=== PATIENT | male | born 2000 | race Caucasian/White ===

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

== ENCOUNTER 2024-03-30 09:35 | Emergency (ER) | payer BC, SELFPAY ==
--- NOTE | ~2024-03-30 | XR_ITS ---
XR chest 2V Ordering provider: Sapphire Llamas III, DO History: 23 years Male with . cough . Comparison: None. FINDINGS: MEDIASTINUM: The cardiac silhouette is not enlarged. LUNGS: No infiltrates, effusions or pneumothorax. OTHER: No free air under the diaphragm. IMPRESSION: No acute cardiopulmonary pathology. Reviewed, dictated and finalized at location A. ENTER WINE
[2024-03-30 09:45] VITALS: BP 118/69; PULSE 94; RESP 16; TEMP 36.7; O2SAT 100
[2024-03-30 10:24] LABS: Strep Group A RT-PCR NOT DETECTED (Negative)
[2024-03-30 10:35] LABS: Influenza A QL RT-PCR Negative (Negative); Influenza B QL RT-PCR Negative (Negative); RSV RNA, RT-PCR Negative (Negative); SARS-CoV-2 RNA PCR Negative (Negative)
[2024-03-30 11:12] VITALS: O2SAT 97
[2024-03-30] MEDS: KETOROLAC 30 MG/ML VIAL (*BKC) IM (11:12)
--- NOTE | 2024-03-30 11:38 | ED.URI ---
HPI - URI/Sore Throat General Chief Complaint: Upper Respiratory Infection Stated Complaint: sore throat, shortness of breath Time Seen by Provider: 03/30/24 10:22 History of Present Illness HPI Narrative: Pt presents with sore throat, body aches, and cough for a couple of days. Pt has at home so wanted to get checked out. Pt denies nausea or vomiting or fever. Pt denies abdominal pain or urinary symptoms. Related Data Allergies Allergy/AdvReac Type Severity Reaction Status Date / Time sertraline (From Zoloft) Allergy Swelling Verified 03/30/24 09:36 Review of Systems Review of Systems: All systems reviewed & are unremarkable except as noted in HPI and below PMFSH Past Medical History Medical History (Updated 03/30/24 @ 11:59 by Sapphire Llamas III, DO) Anxiety Polysubstance abuse Surgical History Surgical History (Updated 03/05/20 @ 16:56 by Ashley Lynn MD) No significant past surgical history Social History Social History (Updated 03/05/20 @ 16:55 by Ashley Lynn MD) Alcohol intake: current Alcohol use details: rarely Substance use type: marijuana, hallucinogens and prescription drug Gender identity (if verbalized by the patient): Male Exam Const: General: healthy appearing and no acute distress Nutritional Appearance: well nourished Orientation/consciousness: patient oriented x3 Limitations: no limitations HENMT: Head: normal to inspection Face/Nose/Sinus: Normal external nose present Face and sinus: normal facial exam Mouth: Yes Normal oral and palatal mucosa present Throat: posterior oropharynx normal Eyes: EOM: EOMs intact bilaterally Neck: Neck: normal visual inspection and no lymphadenopathy Chest: Chest palpation & inspection: normal inspection of the chest and abnormal inspection of the chest Resp: Effort & Inspection: normal respiratory effort Auscultation: clear to auscultation bilaterally Cardio: Rate: regular rate Rhythm: regular rhythm GI: GI Palp: Yes Soft to palpation and No Tenderness to palpation present (GI) Auscultation: normal bowel sounds Skin: General skin exam: normal color Rashes: no rashes Wounds: no wounds Neuro: General: patient oriented x3, moves all extremities, no meningeal signs and CN's II-XI intact bilaterally Cranial nerves: Yes Nystagmus not present Speech: normal speech Extrem: General: normal to inspection and no clubbing, cyanosis or edema Psych: Mental Status: mental status grossly normal Affect: normal affect Attitude: cooperative Course Vital Signs Vital signs: Vital Signs Temperature 98.1 F 03/30/24 09:45 Pulse Rate 94 03/30/24 09:45 Respiratory Rate 16 03/30/24 09:45 Blood Pressure 118/69 03/30/24 09:45 Pulse Oximetry 100 03/30/24 09:45 Oxygen Delivery Room Air 03/30/24 09:45 Temperature 98.1 F 03/30/24 09:45 Pulse Rate 94 03/30/24 09:45 Respiratory Rate 16 03/30/24 09:45 Blood Pressure 118/69 03/30/24 09:45 Pulse Oximetry 97 03/30/24 11:12 Oxygen Delivery Room Air 03/30/24 11:12 MDM - URI/Sore Throat MDM Narrative Medical decision making narrative: Pt presents with st cough and body aches. will check cxr swabs and rapid strep. all tests neg. likely viral uri. Lab Data Labs: Lab Results 03/30/24 03/30/24 Range/Units 09:53 09:54 Influenza A (RT-PCR) Negative (Negative) Influenza B (RT-PCR) Negative (Negative) RSV (RT-PCR) Negative (Negative) SARS-CoV-2 RNA (RT-PCR) Negative (Negative) Group A Strep (PCR) Not detected (Negative) Discharge Plan Discharge Clinical Impression: Viral infection Patient Disposition: Home, Self-Care Condition: Stable Instructions: Antibiotic Form, Viral Syndrome (ED) Patient Language: Bulgarian Prescriptions: New naproxen [Naprosyn] 500 mg tablet 500 mg PO BID Qty: 20 0RF No Action ondansetron 4 mg tablet,disintegrating 4 mg PO Q6H PRN (Reason: nausea and vomiting) Qty: 10 0RF Follow-up/Referrals: UNKNOWN,DOCTOR [Primary Care Provider] -
--- OUTSIDE RECORDS SUMMARY | 2024-04-06 08:34 | XMS_ITS | Referral Summary ---
Author Organization [facility] Address [facility] [place] [address] Care Team Providers Care General Handling Supervisor Name Role Phone Unavailable Primary Care Provider Unavailabl e Source Comments [facility],non-[facility] Affiliates and Associated Physician Practices is amultiple site organization consisting of ambulatory clinics and hospital sitesin [place], [place], [place] and [place]. This disclosure is being madepursuant to the Care Everywhere program and may not contain all information available regarding this patient. Last updated 18.[facility] Social History Tobacco Use Types Packs/Day Years Used Date Smoking Tobacco: Never Assessed Sex and Gender Information Value Date Recorded Sex Assigned at Not on file Gender Identity Not on file Sexual Orientation Not on file Plan of Treatment Not on file
--- OUTSIDE RECORDS SUMMARY | 2024-04-06 08:34 | XMS_ITS | Patient Health Summary ---
Author Organization [facility] Address [address] [place] [address] Care Team Providers Care [employer] Paralegal Name Role Phone Unavailable Primary Care Provider Unavailabl e Note from [facility] [place],non-owned Affiliates and Associated Physician Practices is amultiple site organization consisting of ambulatory clinics and hospital sitesin [place], [place], [place] and [place]. This disclosure is being madepursuant to the Care Everywhere program and may not contain all information available regarding this patient. Last updated 18.[facility] Social History Tobacco Use Types Packs/Day Years Used Date Smoking Tobacco: Never Assessed Sex and Gender Information Value Date Recorded Sex Assigned at Not on file Gender Identity Not on file Sexual Orientation Not on file Procedures * GROSS + MICRO EXAM(Performed 2002) Results * GROSS + MICRO EXAM (2002 2:00 PM CDT) Result CASE NUMBER [id number] [facility] PATH REPORT Comment: ORDERING PHYSICIAN ??MARIAA MALDONADO SPECIMEN TYPE ?Placenta,3rdTrimstr CLINICAL HISTORY ? GROSS DESCRIPTION ? CLINICAL DATA ??02 INFANT Gestational Age ??36 weeks Weight ??3239 grams RDS ?? Facies ?? Congenital Anomalies ?? MOTHER Age ??18 years ? Grav ??1 ?Para ??1 ?Ab ?? Hypertension ?Bleeding ?? Oligohydramnios ? Infection ?? Polyhydramnios ?Previous Stillbirths ?? Labor/Duration ??1.5 hours ? Diabetes ?? Additional Comments ?? cc ??[facility] ?[place], [place] GROSS DESCRIPTION ?? The specimen labeled with Laxmi Reeder, Malcolm Reeder, and placenta is received fixed in formalin for gross and microscopic examination and consists of a placenta with attached segment of umbilical cord, membranes, and detached segment of umbilical cord. ??The placenta measures 22.0 x 18.5 cm. ??The placental thickness measures 1.5 cm. ??The umbilical cord segments have an aggregate measurement of 35.0 cm in length x 1.5 cm in diameter. ??There are no knots of the umbilical cord, and the surface is yellow-white and glistening. ??The umbilical cord attachment is central. ??There are three umbilical cord vessels. ??The membranes are torn. ??The shortest length is at the margin, and the longest length is 25.0 cm. ??The membrane appearance is blanchard-lloyd and translucent, and the attachments are marginal. ??The surface has few fibrin plaques. ??The maternal surface has areas of calcification. ?? Section surfaces are grossly unremarkable. ??The placental weight after trimming is approximately 546 grams. ??Corrections Counselor sections from the placenta are submitted in cassettes A1 and A2 . ??Corrections Counselor sections from the umbilical cord and membranes are submitted in cassette A3 . ??(CT/dcr) MICROSCOPIC DESCRIPTION ? 3 H/E. Sections of the placenta show a mature placenta. ??Foci of hydropic villi are seen. ??The amniotic layer is reactive. ??No inflammation is seen. ??The umbilical cord has three vessels. ??No inflammation is seen. ?? (MM/dcr) DIAGNOSIS ? DIAGNOSIS ??THIRD TRIMESTER PLACENTA AND 3 VESSEL UMBILICAL CORD ? - FETOPLACENTAL RATIO 5.93 (NORMAL FETOPLACENTAL RATIO ? 6.3-6.7). ? - FOCAL HYDROPIC VILLI. ? - REACTIVE AMNION. ? This case has been personally reviewed and interpreted by the attending (teaching) pathologist. Television Service Engineer ? ESPERANZA ROSS RESIDENT IN PATHOLOG Sayda Nicolas M.D. PATHOLOGIST ?Mee Garcia M.D. ELECTRONICALLY BRUCEMEE ALLISON MISCELLANEOUS SAMPLES / Unknown 2002 2:00 PM CDT 2002 8:23 AM CDT Historical Provider LAB - PATHOLOGY/C YTOLOGY ORDERABLES [facility] PATH REPORT
--- OUTSIDE RECORDS SUMMARY | 2024-04-06 08:34 | XMS_ITS | Encounter Summary ---
Author Organization [facility] Address [address] [facility] [place] [address] Care Team Providers Care Instrumentation Chemist Name Role Phone Unavailable Primary Care Provider Unavailabl e Encounter Details Date Type Department Care Team (Late st Contact Info) Description 03/07/2020 7:45 AM MEAT STOCKER - 03/07/2020 2:19 PM MEAT STOCKER Hospital Encounter [facility] at [address] [address] Sanjeev Benjamin MD [address] [place] [id number] Social History Tobacco Use Types Packs/Day Years Used Date Smoking Tobacco: Never Assessed Sex and Gender Information Value Date Recorded Sex Assigned at Not on file Gender Identity Not on file Sexual Orientation Not on file COVID-19 Exposure Response Date Recorded In the last month, have you been in contact with someone who was confirmed or suspected to have Coronavirus / COVID-19? Unable to assess 03/07/2020 7:44 AM MEAT STOCKER documented as of this encounter Plan of Treatment Not on file documented as of this encounter Visit Diagnoses Diagnosis Convulsions, unspecified convulsion type (HCC) documented in this encounter
--- OUTSIDE RECORDS SUMMARY | 2024-04-06 08:34 | XMS_ITS | Clinical Summary ---
Author Organization [facility] Address [address] [place] [address] Care Team Providers Care Pattern Keeper Name Role Phone Unavailable Primary Care Provider Unavailabl e Source Comments [facility] Affiliates and Associated Physician Practices is amultiple site organization consisting of ambulatory clinics and hospital sitesin [place], [place], [place] and [place]. This disclosure is being madepursuant to the Care Everywhere program and may not contain all information available regarding this patient. Last updated 18.[facility] [employer] Social History Tobacco Use Types Packs/Day Years Used Date Smoking Tobacco: Never Assessed Sex and Gender Information Value Date Recorded Sex Assigned at Not on file Gender Identity Not on file Sexual Orientation Not on file Plan of Treatment Health Maintenance Due Date Last Done Comments HIV SCREENING 2017 HPV VACCINE (1 - Male 3-dose series) 2017 HEPATITIS C SCREENING 10/11/2020 DTAP/TDAP/TD VACCINES (1 - Tdap) 2021 HEPATITIS B VACCINE (1 of 3 - 19+ 3-dose series) 2021 DEPRESSION SCREENING 04/15/2023 COVID-19 VACCINE (1 - 2023-2 5 season) 2023 INFLUENZA VACCINE (#1) 2023 01/19/2015 ZOSTER VACCINE (1 of 2) 2052 HIB VACCINE Aged Out No longer eligi ble based on patient's age to complete this topic MENINGOCOCCAL VACCINE Aged Out No jhony nasima eligible based on patient's age to complete this topic PNEUMOCOCCAL VACCINE Aged Out No long er eligible based on patient's age to complete this topic
--- OUTSIDE RECORDS SUMMARY | 2024-04-06 08:34 | XMS_ITS | Encounter Summary ---
Author Organization [facility] Address [address] [place] [address] Care Team Providers Care Arrt Technologist Name Role Phone Unavailable Primary Care Provider Unavailabl e Encounter Details Date Type Department Care Team (Late st Contact Info) Description 2002 Orders Only [facility] - Laboratory [address] [place] [phone] ProviderBenigno MD Social History Tobacco Use Types Packs/Day Years Used Date Smoking Tobacco: Never Assessed Sex and Gender Information Value Date Recorded Sex Assigned at Not on file Gender Identity Not on file Sexual Orientation Not on file documented as of this encounter Plan of Treatment Not on file documented as of this encounter Procedures Procedure Name Priority Date/Time Associated Diagnosis Comments GROSS + MICRO EXAM CYN 2002 2: 00 PM CDT documented in this encounter Results * GROSS + MICRO EXAM (2002 2:00 PM CDT) Result CASE NUMBER [id number] [facility] PATH REPORT Comment: ORDERING PHYSICIAN ??MARIAA MALDONADO SPECIMEN TYPE ?Placenta,3rdTrimstr CLINICAL HISTORY ? GROSS DESCRIPTION ? CLINICAL DATA ??02 Gestational Age ??36 weeks Weight ??3239 grams RDS ?? Facies ?? Congenital Anomalies ?? MOTHER Age ??18 years ? Grav ??1 ?Para ??1 ?Ab ?? Hypertension ?Bleeding ?? Oligohydramnios ? Infection ?? Polyhydramnios ?Previous Stillbirths ?? Labor/Duration ??1.5 hours ? Diabetes ?? Additional Comments ?? cc ??[facility] ?[place], [place] GROSS DESCRIPTION ?? The specimen labeled [...] weight after trimming is approximately 546 grams. ??Brakeshoe Repairer sections from the placenta are submitted in cassettes A1 and A2 . ??Brakeshoe Repairer sections from the umbilical cord and membranes [...] and interpreted by the attending (teaching) pathologist. Pedicurist ? ESPERANZA ROSS RESIDENT IN PATHOLOG Sayda Nicolas M.D. PATHOLOGIST ?Mee Garcia M.D. ELECTRONICALLY MEE RICHARD MISCELLANEOUS SAMPLES / Unknown 2002 2:00 PM CDT 2002 8:23 AM CDT Historical Provider LAB - PATHOLOGY/C YTOLOGY ORDERABLES [facility] PATH REPORT documented in this encounter Visit Diagnoses Not on filedocumented in this encounter
--- OUTSIDE RECORDS SUMMARY | 2024-04-06 08:34 | XMS_ITS | Encounter Summary ---
Author Organization [facility] Address [address] [place] [address] [place] [address] Care Team Providers Care Sales Marketing Manager Name Role Phone Unavailable Primary Care Provider Unavailabl e Encounter Details Date Type Department Care Team (Latest Contact Info) Description 03/07/2020 Travel Social History Tobacco Use Types Packs/Day Years [...] COVID-19? 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
--- OUTSIDE RECORDS SUMMARY | 2024-04-06 08:35 | XMS_ITS | Encounter Summary ---
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
--- OUTSIDE RECORDS SUMMARY | 2024-04-06 08:35 | XMS_ITS | Encounter Summary ---
Author Organization [facility] Address [address] [place] [address] Phone Care Team Providers Care Department Editor Name Role Phone Provider, None Primary Care Provider Unavailabl e Reason for Visit * Reason Comments Laceration Encounter Details Date Type Department Care Team ([facility] st Contact Info) Description 03/12/2023 4:22 PM ENGINEERING INTERN - 03/12/2023 6:40 PM ENGINEERING INTERN Emergency [facility] Emergency [address] [place] [address] Deven Soto, PAC [address] [place] [address] Laceration of left thumb Discharge Disposition: Discharged to home or Selfcare Social History Tobacco Use Types Packs/Day Years Used Date Smoking Tobacco: Unknown Tobacco Cessation:Counseling Given: Not Answered Sex and Gender Information Value Date Recorded Sex Assigned at Not on file Legal Sex Male 3:45 PM ENGINEERING INTERN Gender Identity Not on file Sexual Orientation Not on file documented as of this encounter Last Filed Vital Signs Vital Sign Reading Time Taken Comments Blood Pressure 118/67 03/12/2023 6:30 PM ENGINEERING INTERN Pulse 80 03/12/2023 6:30 PM ENGINEERING INTERN Temperature 36.7 ??C (98 ??F) 03/12/2023 4:21 PM ENGINEERING INTERN Respiratory Rate 16 03/12/2023 6:30 PM ENGINEERING INTERN Oxygen Saturation 99% 03/12/2023 6:30 PM ENGINEERING INTERN Inhaled Oxygen Concentration - - Weight 68 kg (150 lb) 03/12/2023 4:21 PM ENGINEERING INTERN Height 182.9 cm (6') 03/12/2023 4:21 PM ENGINEERING INTERN Body Mass Index 20.34 03/12/2023 4:21 PM ENGINEERING INTERN documented in this encounter Discharge Instructions * Attachments The following attachments cannot be sent through Care Everywhere. * Laceration Care Adult [id number] (Bahamian) documented in this encounter ED Notes * Sandra Hansen RN - 03/12/2023 6:38 PM CST Patient discharged. Discharge instructions and patient educational material reviewed with patient; questions and concerns addressed; patient verbalizes understanding, using teach back. Patient was given 0 prescriptions. Patient discharged per ambulatory mode with self as responsible alliance party. NEERING INTERN * Sandra Hansen RN - 03/12/2023 6:16 PM CST Pt medicated per provider orders. Pt educated on intended effects and side effects of medication and verbalized understanding, able to provide teach back of education. NEERING INTERN * Deven Soto PAC - 03/12/2023 5:58 PM CSTAssociated Order(s): Laceration Repair Images from the original note were not included. Chief Complaint Patient presents with ??? Laceration Darrell Reeder is a 22 y.o. male who presents to the ED c/o laceration to tip of left thumb while cutting up meat today. Bleeding controlled. Last Td is 2015 and requesting update today. No other areas of injury. History reviewed. No pertinent past medical history. Current Facility-Administered Medications Medication Dose Route Frequency Provider Last Rate Last Admin ??? kxngrnp-motjtiuvgm-upeqbviuy pertussis (BOOSTRIX) injection SUSP 0.5 mL 0.5 mL Intramuscular Once Deven Soto PAC No current outpatient medications on file. Allergies Allergen Reactions ??? Zoloft [Sertraline] Swelling History reviewed. No pertinent past medical history. No past surgical history on file. Social History Socioeconomic History ??? Marital status: Single Spouse name: Not on file ??? Number of children: Not on file ??? Years of education: Not on file ??? Highest education level: Not on file Occupational History ??? Not on file Tobacco Use ??? Smoking status: Unknown ??? Smokeless tobacco: Not on file Substance and Sexual Activity ??? Alcohol use: Not on file ??? Drug use: Not on file ??? Sexual activity: Not on file Other Topics Concern ??? Not on file Social History Narrative ??? Not on file BP 113/63 Pulse 91 Temp 98 ??F (36.7 ??C) (Tympanic) Resp 18 Ht 6' (1.829 m) Wt 150 lb (68 kg) SpO2 98% BMI 20.34 kg/m?? Review of Systems Skin: Positive for wound (left thumb). All other systems reviewed and are negative. Physical Exam Vitals and nursing note reviewed. Constitutional: General: He is not in acute distress. Appearance: He is well-developed. He is not diaphoretic. HENT: Head: Normocephalic and atraumatic. Cardiovascular: Rate and Rhythm: Normal rate and regular rhythm. Heart sounds: Normal heart sounds. No murmur heard. Pulmonary: Effort: Pulmonary effort is normal. No respiratory distress. Breath sounds: Normal breath sounds. No wheezing, rhonchi or rales. Abdominal: General: Bowel sounds are normal. There is no distension. Palpations: Abdomen is soft. Tenderness: There is no abdominal tenderness. Musculoskeletal: Hands: Cervical back: Normal range of motion and neck supple. Skin: General: Skin is warm and dry. Coloration: Skin is not pale. Findings: No erythema or rash. Neurological: Mental Status: He is alert and oriented to person, place, and time. Psychiatric: Behavior: Behavior normal. No orders to display Laceration Repair Performed by: Deven Soto PAC Authorized by: Deven Soto PAC Consent: Verbal consent obtained. Risks and benefits: risks, benefits and alternatives were discussed Consent given by: patient Patient understanding: patient states understanding of the procedure being performed Patient consent: the patient's understanding of the procedure matches consent given Procedure consent: procedure consent matches procedure scheduled Relevant documents: relevant documents present and verified Test results: test results available and properly labeled Site marked: the operative site was marked Patient identity confirmed: verbally with patient and arm band Body area: upper extremity Location details: left thumb Laceration length: 0.5 cm Foreign bodies: no foreign bodies Tendon involvement: none Nerve involvement: none Vascular damage: no Irrigation solution: saline Irrigation method: syringe Amount of cleaning: standard Debridement: none Degree of undermining: none Skin closure: glue Approximation difficulty: simple Dressinx4 sterile gauze No results found for this or any previous visit (from the past 24 hour(s)). Imaging Results None Medical Decision Making Laceration of left thumb: acute illness or injury Clinical Impression 1. Laceration of left thumb Disposition: Discharge The patient remained stable throughout their ED stay. My clinical impression was discussed with thepatient/family. Labs and radiology results were reviewed with them. I gave them the opportunity to ask questions, and addressed them as completely as possible given the information available at present. The therapeutic plan was discussed, advised to take medications as instructed, instructions weregiven and the importance of primary care follow up was stressed and encouraged. The patient/family voiced understanding of the plan, indications to return, and the need for follow up. Cosigned by Any Serrato MD at 03/24/2023 5:39 PM ENGINEERING INTERN NEERING INTERN NEERING INTERN * Sandra Hansen RN - 03/12/2023 4:45 PM CST Pt resting in chair with call light in reach. No distress noted. NEERING INTERN * Sandra Hansen RN - 03/12/2023 4:35 PM CST Pt presents to ED room 11B for complaint of left thumb laceration. Pt states he was cutting meat when he accidentally sliced his finger. Pt states his last tetanus shot was in 2016. Pt's cut is open to air with no drainage at this time. Pt states his thumb bled a lot prior to arrival and rates it an 8/10 pain. Pt resting in chair with call light in reach. No distress noted. NEERING INTERN documented in this encounter Plan of Treatment Not on file documented as of this encounter Procedures Procedure Name Priority Date/Time Associated Diagnosis Comments LACERATION REPAIR Routine 03/12/2023 5:5 8 PM ENGINEERING INTERN documented in this encounter Results * Laceration Repair (03/12/2023 5:58 PM ENGINEERING INTERN) Narrative Any Serrato MD - 03/12/2023 5:58 PM ENGINEERING INTERN Deven Soto PAC ? 03/12/2023 ??9:55 PM Laceration Repair Performed by: Deven Soto PAC Authorized by: Deven Soto PAC ??Consent: Verbal consent obtained. Risks and benefits: risks, benefits and alternatives were discussed Consent given by: patient Patient understanding: patient states understanding of the procedure being performed Patient consent: the patient's understanding of the procedure matches consent given Procedure consent: procedure consent matches procedure scheduled Relevant documents: relevant documents present and verified Test results: test results available and properly labeled Site marked: the operative site was marked Patient identity confirmed: verbally with patient and arm band Body area: upper extremity Location details: left thumb Laceration length: 0.5 cm Foreign bodies: no foreign bodies Tendon involvement: none Nerve involvement: none Vascular damage: no Irrigation solution: saline Irrigation method: syringe Amount of cleaning: standard Debridement: none Degree of undermining: none Skin closure: glue Approximation difficulty: simple Dressinx4 sterile gauze Deven Soto PAC PROCEDURE/MINOR SURG ICAL ORDERABLES Final Result documented in this encounter Visit Diagnoses Diagnosis Laceration of left thumb- Primary Open wound of finger(s) , without mention of complication documented in this encounter Care Teams Department Editor Relationship Specialty Start Date End Date Provider, None [place] PCP - General 03/12/23 documented as of this encounter
--- OUTSIDE RECORDS SUMMARY | 2024-04-06 08:35 | XMS_ITS | Clinical Summary ---
Author Organization [facility] Address [address] [place] [address] Phone Care Team Providers Care Communications Engineering Technician Name Role Phone Provider, None Primary Care Provider Unavailabl e Allergies Active Allergy Reactions Criticality Noted Date Comments Sertraline Swelling 03/12/2023 Medications No known medications Immunizations Immunization Administration Dates Next Due TDAP Vaccine 03/12/2023 Social History Tobacco Use Types Packs/Day Years Used Date Smoking Tobacco: Unknown Tobacco Cessation:Counseling Given: Not Answered Sex and Gender Information Value Date Recorded Sex Assigned at Not on file Legal Sex Male 3:45 PM PENSION CONSULTANT Gender Identity Not on file Sexual Orientation Not on file Last Filed Vital Signs Vital Sign Reading Time Taken Comments Blood Pressure 118/67 03/12/2023 6:30 PM PENSION CONSULTANT Pulse 80 03/12/2023 6:30 PM PENSION CONSULTANT Temperature 36.7 ??C (98 ??F) 03/12/2023 4:21 PM PENSION CONSULTANT Respiratory Rate 16 03/12/2023 6:30 PM PENSION CONSULTANT Oxygen Saturation 99% 03/12/2023 6:30 PM PENSION CONSULTANT Inhaled Oxygen Concentration - - Weight 68 kg (150 lb) 03/12/2023 4:21 PM PENSION CONSULTANT Height 182.9 cm (6') 03/12/2023 4:21 PM PENSION CONSULTANT Body Mass Index 20.34 03/12/2023 4:21 PM PENSION CONSULTANT Plan of Treatment Not on file Insurance [facility] Care Teams Communications Engineering Technician Relationship Specialty Start Date End Date Provider, None [place] PCP - General 03/12/23
--- OUTSIDE RECORDS SUMMARY | 2024-04-07 00:19 | XMS_ITS | Encounter Summary ---
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
--- OUTSIDE RECORDS SUMMARY | 2024-04-07 00:19 | XMS_ITS | Referral Summary ---
Author Organization [facility] Address [facility] [place] [place] [address] Care Team Providers Care Communication Center Coordinator Name Role Phone Unavailable Primary Care Provider Unavailabl e Source Comments [facility] Affiliates and Associated Physician Practices is amultiple site organization consisting of ambulatory clinics and hospital sitesin [place], [place], [place] and [place]. This disclosure is being madepursuant to the Care Everywhere program and may not contain all information available regarding this patient. Last updated 18.[facility] Social History Tobacco Use Types Packs/Day Years Used Date Smoking Tobacco: Never Assessed Sex and Gender Information Value Date Recorded Sex Assigned at Not on file Gender Identity Not on file Sexual Orientation Not on file Plan of Treatment Not on file
--- OUTSIDE RECORDS SUMMARY | 2024-04-07 00:19 | XMS_ITS | Encounter Summary ---
Author Organization [facility] Address [address] [place] [address] Care Team Providers Care Transition Specialist Name Role Phone Unavailable Primary Care Provider Unavailabl e Encounter Details Date Type Department Care Team (Late st Contact Info) Description 2002 Orders Only [facility] - Laboratory [address] [place] [address] ProviderBenigno MD Social History Tobacco Use Types [...] PM CDT) Result CASE NUMBER [id number] [facility] PATH REPORT Comment: ORDERING PHYSICIAN ??MARIAA [...] ? Diabetes ?? Additional Comments ?? cc ??[facility] ?[place], [place] GROSS DESCRIPTION ?? The specimen labeled [...] weight after trimming is approximately 546 grams. ??Materials Mgmt Tech sections from the placenta are submitted in cassettes A1 and A2 . ??Materials Mgmt Tech sections from the umbilical cord and membranes [...] and interpreted by the attending (teaching) pathologist. Legal Consultant ? ESPERANZA ROSS RESIDENT IN PATHOLOG Sayda Nicolas M.D. PATHOLOGIST ?Mee Garcia M.D. ELECTRONICALLY MEE RICHARD MISCELLANEOUS SAMPLES / Unknown 2002 2:00 PM CDT 2002 8:23 AM CDT Historical Provider LAB - PATHOLOGY/C YTOLOGY ORDERABLES [facility] PATH REPORT documented in this encounter Visit Diagnoses Not on filedocumented in this encounter
--- OUTSIDE RECORDS SUMMARY | 2024-04-07 00:19 | XMS_ITS | Encounter Summary ---
Author Organization [facility] Address [address] [place] [address] [place] [address] Care Team Providers Care Library Clerical Assistant Name Role Phone Unavailable Primary Care Provider [...] COVID-19? 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
--- OUTSIDE RECORDS SUMMARY | 2024-04-07 00:19 | XMS_ITS | Clinical Summary ---
Author Organization [facility] Address [address] [place] [address] Care Team Providers Care Cell Geneticist Name Role Phone Unavailable Primary Care Provider Unavailabl e Source Comments [facility],non-[facility] Affiliates and Associated Physician Practices is amultiple site organization consisting of ambulatory clinics and hospital sitesin [place], [place], [place] and [place]. This disclosure is being madepursuant to the Care Everywhere program and may not contain all information available regarding this patient. Last updated 18.[facility] [employer] Social History Tobacco Use Types Packs/Day Years [...]
--- OUTSIDE RECORDS SUMMARY | 2024-04-07 00:19 | XMS_ITS | Encounter Summary ---
Author Organization [facility] Address [address] [place] [address] Phone Care Team Providers Care Fermentation Scientist Name Role Phone Provider, None Primary Care Provider Unavailabl e Reason for Visit * Reason Comments Laceration Encounter Details Date Type Department Care Team ([facility] st Contact Info) Description 03/12/2023 4:22 PM CONFECTIONERY COOKER - 03/12/2023 6:40 PM CONFECTIONERY COOKER Emergency [facility] Emergency [address] [place] [address] Deven Soto, PAC [address] [place] [address] Laceration of left thumb Discharge Disposition: Discharged to home or Selfcare Social History Tobacco Use Types Packs/Day Years Used Date Smoking Tobacco: Unknown Tobacco Cessation:Counseling Given: Not Answered Sex and Gender Information Value Date Recorded Sex Assigned at Not on file Legal Sex Male 3:45 PM CONFECTIONERY COOKER Gender Identity Not on file Sexual Orientation Not on file documented as of this encounter Last Filed Vital Signs Vital Sign Reading Time Taken Comments Blood Pressure 118/67 03/12/2023 6:30 PM CONFECTIONERY COOKER Pulse 80 03/12/2023 6:30 PM CONFECTIONERY COOKER Temperature 36.7 ??C (98 ??F) 03/12/2023 4:21 PM CONFECTIONERY COOKER Respiratory Rate 16 03/12/2023 6:30 PM CONFECTIONERY COOKER Oxygen Saturation 99% 03/12/2023 6:30 PM CONFECTIONERY COOKER Inhaled Oxygen Concentration - - Weight 68 kg (150 lb) 03/12/2023 4:21 PM CONFECTIONERY COOKER Height 182.9 cm (6') 03/12/2023 4:21 PM CONFECTIONERY COOKER Body Mass Index 20.34 03/12/2023 4:21 PM CONFECTIONERY COOKER documented in this encounter Discharge Instructions * Attachments The following attachments cannot be sent through Care Everywhere. * Laceration Care Adult Fnuu-am-Soiy (Ecuadorean) documented in this encounter ED Notes * Sanrda Hansen RN - 03/12/2023 6:38 PM CST Patient discharged. Discharge instructions and patient educational material reviewed with patient; questions and concerns addressed; patient verbalizes understanding, using teach back. Patient was given 0 prescriptions. Patient discharged per ambulatory mode with self as responsible alliance party. ECTIONERY COOKER * Sandra Hansen RN - 03/12/2023 6:16 PM CST Pt medicated per provider orders. Pt educated on intended effects and side effects of medication and verbalized understanding, able to provide teach back of education. ECTIONERY COOKER * Deven Soto PAC - 03/12/2023 5:58 [...] Frequency Provider Last Rate Last Admin ??? ryvnobk-zigrgvvhnz-nygxfkgkc pertussis (BOOSTRIX) injection SUSP 0.5 mL 0.5 [...] Any Serrato MD at 03/24/2023 5:39 PM CONFECTIONERY COOKER ECTIONERY COOKER ECTIONERY COOKER * Sandra Hansen RN - 03/12/2023 4:45 PM CST Pt resting in chair with call light in reach. No distress noted. ECTIONERY COOKER * Sandra Hansen RN - 03/12/2023 4:35 [...] call light in reach. No distress noted. ECTIONERY COOKER documented in this encounter Plan of Treatment Not on file documented as of this encounter Procedures Procedure Name Priority Date/Time Associated Diagnosis Comments LACERATION REPAIR Routine 03/12/2023 5:5 8 PM CONFECTIONERY COOKER documented in this encounter Results * Laceration Repair (03/12/2023 5:58 PM CONFECTIONERY COOKER) Narrative Any Serrato MD - 03/12/2023 5:58 PM CONFECTIONERY COOKER Deven Soto PAC ? 03/12/2023 ??9:55 PM [...] complication documented in this encounter Care Teams Fermentation Scientist Relationship Specialty Start Date End Date Provider, None [place] PCP - General 03/12/23 documented as of this encounter
--- OUTSIDE RECORDS SUMMARY | 2024-04-07 00:19 | XMS_ITS | Encounter Summary ---
Author Organization [facility] Address [address] [place] [address] Care Team Providers Care Software Test Automation Engineer Name Role Phone Unavailable Primary Care Provider Unavailabl e Encounter Details Date Type Department Care Team (Late st Contact Info) Description 03/07/2020 7:45 AM COAL GETTER - 03/07/2020 2:19 PM COAL GETTER Hospital Encounter [facility] at [address] [address] Sanjeev Benjamin MD [address] [place] [id number] Social History Tobacco Use Types Packs/Day Years [...] COVID-19? Unable to assess 03/07/2020 7:44 AM COAL GETTER documented as of this encounter Plan of Treatment Not on file documented as of this encounter Visit Diagnoses Diagnosis Convulsions, unspecified convulsion type (HCC) documented in this encounter
--- OUTSIDE RECORDS SUMMARY | 2024-04-07 00:19 | XMS_ITS | Clinical Summary ---
Author Organization [facility] Address [address] [place] [address] Phone Care Team Providers Care Criminal Justice Program Director Name Role Phone Provider, None Primary Care [...] on file Legal Sex Male 3:45 PM CHANGEOVER OPERATOR Gender Identity Not on file Sexual Orientation Not on file Last Filed Vital Signs Vital Sign Reading Time Taken Comments Blood Pressure 118/67 03/12/2023 6:30 PM CHANGEOVER OPERATOR Pulse 80 03/12/2023 6:30 PM CHANGEOVER OPERATOR Temperature 36.7 ??C (98 ??F) 03/12/2023 4:21 PM CHANGEOVER OPERATOR Respiratory Rate 16 03/12/2023 6:30 PM CHANGEOVER OPERATOR Oxygen Saturation 99% 03/12/2023 6:30 PM CHANGEOVER OPERATOR Inhaled Oxygen Concentration - - Weight 68 kg (150 lb) 03/12/2023 4:21 PM CHANGEOVER OPERATOR Height 182.9 cm (6') 03/12/2023 4:21 PM CHANGEOVER OPERATOR Body Mass Index 20.34 03/12/2023 4:21 PM CHANGEOVER OPERATOR Plan of Treatment Not on file Insurance [facility] Care Teams Criminal Justice Program Director Relationship Specialty Start Date End Date Provider, None [place] PCP - General 03/12/23
--- OUTSIDE RECORDS SUMMARY | 2024-04-07 00:19 | XMS_ITS | Patient Health Summary ---
Author Organization [facility] Address [address] [place] [address] Care Team Providers Care Nuclear Waste Management Engineer Name Role Phone Unavailable Primary Care Provider Unavailabl e Note from [facility],non-owned Affiliates and Associated Physician Practices is amultiple site organization consisting of ambulatory clinics and hospital sitesin [place], [place], [place] and [place]. This disclosure is being madepursuant to the Care Everywhere program and may not contain all information available regarding this patient. Last updated 18.[facility] Social History Tobacco Use Types Packs/Day Years Used Date Smoking Tobacco: Never Assessed Sex and Gender Information Value Date Recorded Sex Assigned at Not on file Gender Identity Not on file Sexual Orientation Not on file Procedures * GROSS + MICRO EXAM(Performed 2002) Results * GROSS + MICRO EXAM (2002 2:00 PM CDT) Result CASE NUMBER [id number] [facility] PATH REPORT Comment: ORDERING [...] ? Diabetes ?? Additional Comments ?? cc ??[facility] ?[place], [place] GROSS DESCRIPTION ?? The specimen labeled [...] weight after trimming is approximately 546 grams. ??Trouble Locator Test Desk sections from the placenta are submitted in cassettes A1 and A2 . ??Trouble Locator Test Desk sections from the umbilical cord and membranes [...] and interpreted by the attending (teaching) pathologist. Soil Science Technical Officer ? ESPERANZA ROSS RESIDENT IN PATHOLOG Sayda Nicolas M.D. PATHOLOGIST ?Mee Garcia M.D. ELECTRONICALLY BRUCEMEE ALLISON MISCELLANEOUS SAMPLES / Unknown 2002 2:00 PM CDT 2002 8:23 AM CDT Historical Provider LAB - PATHOLOGY/C YTOLOGY ORDERABLES [facility] PATH REPORT
== END 2024-03-30 12:05 | disposition home or self-care (01) ==
PROVIDERS: Emergency Provider Emergency Medicine
DX: B34.9 Viral infection, unspecified (principal); Z20.822 Contact with and (suspected) exposure to COVID-19
CPT/HCPCS: 71046; 87637; 87651; 96372; 99283; J1885